=== PATIENT | male | born 1940 | race African-American/Black ===

== ENCOUNTER 2020-10-12 06:47 | Day surgery (SDC) | payer OTHER ==
[~2020-10-12] VITALS: Ht 185.4 cm; Wt 89.8 kg
[~2020-10-12 06:47] MED LIST: AMLO-489 PO; ASPI-543 PO; ATOR40TA52 PO; B COTAB PO; CANA300T PO; CHOL100029 PO; FINA5TAB4 PO; INSLANTI SC; LISI20TA28 PO; METF-370 PO; METO25TA93 PO; PRAS10TA8 PO; SITA100T7 PO; TAMS0.4C36 PO
[2020-10-12] MEDS ORDERED: LIDOCAINE 2%HCL (LOCAL ANESTH.) INJ 20ML MDV ONE (08:09)
[2020-10-12] MEDS ORDERED: IODIXANOL 320MG/ML 100ML BTL IV ONE (08:09)
[2020-10-12] MEDS ORDERED: fentaNYL CITRATE 100 MCG/2 ML VL ONE (08:39)
[2020-10-12] MEDS ORDERED: MIDAZOLAM HCL 1MG/1ML-2 ML VIAL ONE (08:39)
[2020-10-12] MEDS ORDERED: ANGIOMAX 250 MG VIAL IV ONE (08:39)
[2020-10-12] MEDS ORDERED: SODIUM CHL 0.9% 50 ML ONE ×2 (08:39→08:46)
[2020-10-12] MEDS ORDERED: VERAPAMIL 2.5MG/ML INJ 2ML VIAL IV ONE (08:39)
[2020-10-12] MEDS ORDERED: NITROGLYCERIN 5MG/ML 10ML VIAL IV ONE (08:45)
[2020-10-12] MEDS ORDERED: HEPARIN SODIUM (PORCINE) 5000 UNITS/ML 1ML VIAL ONE (09:09)
== END 2020-10-12 14:05 | disposition home or self-care (01) ==
LOC: CATH 06:47
PROVIDERS: ATTEND Internal Medicine
DX: I25.118 Atherosclerotic heart disease of native coronary artery with other forms of angina pectoris (principal); E78.5 Hyperlipidemia, unspecified; I25.2 Old myocardial infarction; I73.9 Peripheral vascular disease, unspecified; Z79.82 Long term (current) use of aspirin; Z20.822 Contact with and (suspected) exposure to COVID-19; Z87.891 Personal history of nicotine dependence; Z79.899 Other long term (current) drug therapy; Z88.8 Allergy status to other drugs, medicaments and biological substances; Z88.1 Allergy status to other antibiotic agents
CPT/HCPCS: 93454; C1769; C1887; C1894; J1644; J2250; J3010; J3490; Q9967; U0003; 99152; 99153